=== PATIENT | female | born 1985 | race Caucasian/White ===

== ENCOUNTER 2016-09-16 13:18 | Emergency (ER) | payer OTHER ==
--- NOTE | 2016-09-16 14:49 | DIAGNOSTIC IMAGING REPORT ---
PROCEDURE: XR SHOULDER 2 OR MORE VW-RIGHT INDICATION: TRAUMA/INJURY TECHNIQUE: Three views. COMPARISON: None. FINDINGS: Osseous structures and joint spaces are normal. IMPRESSION: 1. Normal right shoulder.
--- NOTE | 2016-09-16 15:04 | ED CLINICAL REPORT ---
Clinical Report - Physicians/Mid Levels [facility] [address] [place] [address] 09/16/2016 13:18 Patient: EUGENIE FARRELL Time Seen: 1340; upon arrival, initial patient contact, initial documentation, patient care assumed. Arrived- By private vehicle. Historian- patient. HISTORY OF PRESENT ILLNESS Chief Complaint: Injury to right shoulder. The injury happened just prior to arrival. Twisting injury. Occurred at home. ( pulling weeds and blackberries, and hurt shoulder and heard a rip). Patient is experiencing severe pain. Patient denies injury to the head or neck. No other injury. ( states she has no pain meds and took advil, states she took her last pain pill about x2 weeks ago). REVIEW OF SYSTEMS No swelling, numbness, weakness or skin laceration. All systems otherwise negative, except as recorded above. PAST HISTORY The patient's dominant hand is the right. SOCIAL HISTORY Light tobacco smoker. Occasional alcohol use. History of heavy drug use: marijuana. Recently used drugs yesterday. No recent travel. Is a local resident. FAMILY HISTORY No significant family medical history. ADDITIONAL NOTES The nursing notes have been reviewed with agreement regarding the chief complaint, HPI, ROS, PMH and patient medications and allergies. PHYSICAL EXAM Vital Signs: 09/16/2016 13:33 BP: 115/75. HR: 82. RR: 20. O2 saturation: 100%. Temp: 98 F. Pain level now: 9/10. Have been reviewed as normal and appear to be correct. Appearance: Alert. Oriented X3. No acute distress. Head: Head atraumatic. Eyes: Pupils equal, round and reactive to light. Eyes normal inspection. Respiratory: No respiratory distress. Skin: Skin intact. Skin warm and dry. Normal skin color. Normal skin turgor. Extremities: Abnormal external inspection. Extremity tenderness. Right scapula area: severe tenderness. Limited ROM in the right arm secondary to pain (diminished abduction, flexion and external and internal rotation). No erythema, swelling, laceration, abrasion or ecchymosis. No puncture wound, foreign body or deformity. Shoulder injury present. Shoulder otherwise negative. Extremities otherwise negative. Neuro, Vascular and Tendons: Sensation intact. Motor intact. Vascular status intact. Tendon function intact. Tendon visualized, uninjured. Neuro: Oriented X 3. No motor deficit. No sensory deficit. Note: isolated issue to shoulder. LABS, X-RAYS, AND EKG X-Rays: Right shoulder negative. Rt Shoulder X-ray: (IMPRESSION: 1. Normal right shoulder. Electronically Final signed by:Obi Garcia MD 09/16/2016 2:53:02 PM). The X-rays were interpreted by the radiologist and contemporaneously by me. PROGRESS AND PROCEDURES Course of Care: 13:53 09/16/16. pt has yissel for frequent narcs, last rx 08/21 #90 hydrocodone 7.5mg, consistently getting rx approx every 2 weeks, see report for full details. Patient counseled in person regarding the patient's stable condition, test results and diagnosis. 14:52. Differential Diagnosis: I considered fracture, stress fracture, arthritis, sprain, hyperextension, dislocation, rotator cuff tear, acromioclavicular separation, soft tissue injury, soft tissue hematoma and tendonitis as a possible cause of upper extremity pain in this patient. This is a partial list of diagnoses considered. (substance abuse). Above considerations are based on history, physical exam and X-Ray data. Differential diagnosis was discussed with patient. Disposition: Discharged home in good and unchanged condition (15:04). Condition: good and stable. CLINICAL IMPRESSION Muscle strain of the right rotator cuff at the shoulder. INSTRUCTIONS Warnings: GENERAL WARNINGS: Return or contact your physician immediately if your condition worsens or changes unexpectedly, if not improving as expected, or if other problems arise. Specifically return if problem worsens. Prescription Medications: Naproxen 500 mg tablets: take 1 orally every 12 hours as needed for pain. Dispense twenty (20). No refills. Follow-up: Follow up with your doctor in about one week as needed. Call for an appointment. Summary of care provided to patient. Understanding of the discharge instructions verbalized by patient. (Electronically signed by Aruna Hanks A.R.N.P. 09/16/2016 16:20)
--- NOTE | 2016-09-16 15:05 | ED NURSING NOTES ---
Clinical Report - Nurses [facility] [address] [place] [address] 09/16/2016 13:18 [id number] Triage time 13:37. Acuity: LEVEL 3. Chief Complaint: INJURY TO RIGHT SHOULDER. INJURY TO THE RIGHT SCAPULA AREA and RIGHT SHOULDER. Alert. No acute distress. SEPSIS SCREEN: Sepsis Screen: negative. Negative (no infection suspected/documented). DION COMA SCORE: [place] Coma Scale: 15- eyes open spontaneously (4); best verbal response- oriented x 4 (5); best motor response- obeys commands (6). --13:43 Olamide Park R.N. 13:33 09/16/16. BP: 115/75. HR: 82. RR: 20. O2 saturation: 100% on room air. Temp: 98 F. Pain level now: 9/10. --13:43 Olamide Park R.N. 13:33 09/16/16. BP: 115/75. HR: 82. RR: 20. O2 saturation: 100% on room air. Temp: 98 F. Pain level now: 9/10. --13:43 Olamide Park R.N. Weight: 57.4 kg measured. Height/Length: 70 inches Per Patient. BMI: 18.2. --13:38 Olamide Park R.N. Medications None. --13:41 Olamide Park R.N. Allergies PCN. --13:41 Olamide Park R.N. Medication/allergy information source: the patient. --13:43 Olamide Park R.N. History Arrived by private vehicle. Historian: patient. Accompanied by family. No primary care physician. ( DROPPED OFF). This occurred just prior to arrival. Mechanism of injury: she sustained a twisting injury (Pulling weeks and blackberries., rt arm got caught and heard a rip.). Did not occur at home. Treatment ASSESSMENT MANAGER: None. PAST MEDICAL HX: Tetanus status: up-to-date. Last normal menstrual period now. SOCIAL HX: Light tobacco smoker (cigarette)- less than 1/2 a pack per day. Occasional alcohol use. History of drug use: marijuana. Recently used drugs yesterday. FALL RISK ASSESSMENT: Fall risk assessment completed. No fall risk identified. NUTRITIONAL RISK ASSESSMENT: The nutritional risk assessment revealed no deficiencies. FUNCTIONAL ASSESSMENT: Functional assessment: no impairments noted. LEARNING NEEDS ASSESSMENT: The learning needs assessment revealed no barriers. SKIN INTEGRITY ASSESSMENT: Skin integrity risk assessment completed. No skin integrity risk identified. --13:43 Olamide Park R.N. PROBLEMS: Shoulder injury . Corneal Abrasion. Sprain. Headache. Migraine Headache. --13:42 Olamide Park R.N. ADDITIONAL SURGERIES: Knee Surgery. --13:42 Olamide Park R.N. Interventions ID band on patient. To room. --13:43 Olamide Park R.N. PHYSICAL ASSESSMENT Ambulatory to room. Patient gowned. GENERAL / NEURO / PSYCH: Oriented X 4. Appears anxious. EXTREMITIES: Right scapula area. Limited ROM present. Right shoulder. SKIN: Skin is warm and dry. She has an abrasion on the chest, right forearm and left forearm. --13:44 Olamide Park R.N. NURSING PROGRESS NOTES Extremity elevated. Patient gowned. Two patient identifiers checked. Call light placed in reach. Side rails up x 1. Bed placed in lowest position. Brakes of bed on. --13:45 Olamide Park R.N. DISPOSITION / DISCHARGE 14:59 09/16/16. BP: 117/81 taken on the left arm, while sitting. HR: 75. RR: 18. O2 saturation: 100%. Temp: deferred. Pain level now: 01/26. 13:33 09/16/16. BP: 115/75. HR: 82. RR: 20. O2 saturation: 100% on room air. Temp: 98 F. Pain level now: 03/29. --15:00 Olamide Park R.N. Condition at departure: unchanged. No learning barriers present. Reviewed medication(s) side effects, precautions, dosing and course information. Prescription(s) given to the patient. Patient verbalized understanding. Written instructions provided in Cuban. The patient was discharged home and accompanied by field services director. She left the Emergency Department ambulatory and via private vehicle. Cop driving. Medication list reviewed and validated. --15:31 Olamide Park R.N. Locked/Released at 09/16/2016 15:31 by Olamide Park R.N.
--- NOTE | 2016-09-16 15:05 | ED NURSING NOTES ---
Clinical Report - Nurses [facility] [address] [place] [address] 09/16/2016 13:18 [id number] Triage time 13:37. Acuity: LEVEL 3. Chief Complaint: INJURY TO RIGHT SHOULDER. INJURY TO THE RIGHT SCAPULA AREA and RIGHT SHOULDER. Alert. No acute distress. SEPSIS SCREEN: Sepsis Screen: negative. Negative (no infection suspected/documented). DION COMA SCORE: [place] Coma Scale: 15- eyes open spontaneously (4); best verbal response- oriented x 4 (5); best motor response- obeys commands (6). --13:43 Olamide Park R.N. 13:33 09/16/16. BP: 115/75. HR: 82. RR: 20. O2 saturation: 100% on room air. Temp: 98 F. Pain level now: 9/10. --13:43 Olamide Park R.N. 13:33 09/16/16. BP: 115/75. HR: 82. RR: 20. O2 saturation: 100% on room air. Temp: 98 F. Pain level now: 9/10. --13:43 Olamide Park R.N. Weight: 57.4 kg measured. Height/Length: 70 inches Per Patient. BMI: 18.2. --13:38 Olamide Park R.N. Medications None. --13:41 Olamide Park R.N. Allergies PCN. --13:41 Olamide Park R.N. Medication/allergy information source: the patient. --13:43 Olamide Park R.N. History Arrived by private vehicle. Historian: patient. Accompanied by family. No primary care physician. ( DROPPED OFF). This occurred just prior to arrival. Mechanism of injury: she sustained a twisting injury (Pulling weeks and blackberries., rt arm got caught and heard a rip.). Did not occur at home. Treatment BUSINESS DEVELOPMENT ENGINEER: None. PAST MEDICAL HX: Tetanus status: up-to-date. Last normal menstrual period now. SOCIAL HX: Light tobacco smoker (cigarette)- less than 1/2 a pack per day. Occasional alcohol use. History of drug use: marijuana. Recently used drugs yesterday. FALL RISK ASSESSMENT: Fall risk assessment completed. No fall risk identified. NUTRITIONAL RISK ASSESSMENT: The nutritional risk assessment revealed no deficiencies. FUNCTIONAL ASSESSMENT: Functional assessment: no impairments noted. LEARNING NEEDS ASSESSMENT: The learning needs assessment revealed no barriers. SKIN INTEGRITY ASSESSMENT: Skin integrity risk assessment completed. No skin integrity risk identified. --13:43 Olamide Park R.N. PROBLEMS: Shoulder injury . Corneal Abrasion. Sprain. Headache. Migraine Headache. --13:42 Olamide Park R.N. ADDITIONAL SURGERIES: Knee Surgery. --13:42 Olamide Park R.N. Interventions ID band on patient. To room. --13:43 Olamide Park R.N. PHYSICAL ASSESSMENT Ambulatory to room. Patient gowned. GENERAL / NEURO / PSYCH: Oriented X 4. Appears anxious. EXTREMITIES: Right scapula area. Limited ROM present. Right shoulder. SKIN: Skin is warm and dry. She has an abrasion on the chest, right forearm and left forearm. --13:44 Olamide Park R.N. NURSING PROGRESS NOTES Extremity elevated. Patient gowned. Two patient identifiers checked. Call light placed in reach. Side rails up x 1. Bed placed in lowest position. Brakes of bed on. --13:45 Olamide Park R.N. DISPOSITION / DISCHARGE 14:59 09/16/16. BP: 117/81 taken on the left arm, while sitting. HR: 75. RR: 18. O2 saturation: 100%. Temp: deferred. Pain level now: 01/26. 13:33 09/16/16. BP: 115/75. HR: 82. RR: 20. O2 saturation: 100% on room air. Temp: 98 F. Pain level now: 03/29. --15:00 Olamide Park R.N. Condition at departure: unchanged. No learning barriers present. Reviewed medication(s) side effects, precautions, dosing and course information. Prescription(s) given to the patient. Patient verbalized understanding. Written instructions provided in Chinese. The patient was discharged home and accompanied by statistical machine servicer. She left the Emergency Department ambulatory and via private vehicle. Industrial Chemist driving. Medication list reviewed and validated. --15:31 Olamide Park R.N. Locked/Released at 09/16/2016 15:31 by Olamide Park R.N.
--- NOTE | 2016-09-16 15:05 | ED ORDER SUMMARY ---
..... Patient: EUGENIE FARRELL OrderSheet [facility] VisitID: [id number] [address] [place] [address] 31y, F Registration Date/Time: 09/16/2016 ORDER SHEET Weight: 57.4 kg (measured) Allergies: PCN GENERAL ORDERS: Shoulder 2V or more Right Urgent (13:49 09/16/2016 David A.R.N.P.) ([facility] 13:50 Yaa) (15:31 Steph R.N.) MEDICATION ORDERS: IV FLUIDS: ORDER SHEET NOTES: [Electronically signed by Olamide Park R.N. (15:31 09/16/2016)] [Electronically signed by Aruna HanksR.N.PObinna (16:20 09/16/2016)] [Electronically locked/signed by Olamide Park R.N. (15:31 09/16/2016)]
--- NOTE | 2016-09-16 15:05 | ED ORDER SUMMARY ---
..... Patient: EUGENIE FARRELL OrderSheet [facility] VisitID: [id number] [address] [place] [address] 31y, F Registration Date/Time: 09/16/2016 ORDER SHEET Weight: 57.4 kg (measured) Allergies: PCN GENERAL ORDERS: Shoulder 2V or more Right Urgent (13:49 09/16/2016 David A.R.N.P.) ([facility] 13:50 Yaa) (15:31 Steph R.N.) MEDICATION ORDERS: IV FLUIDS: ORDER SHEET NOTES: [Electronically signed by Olamide Park R.N. (15:31 09/16/2016)] [Electronically signed by Aruna HanksR.N.PObinna (16:20 09/16/2016)] [Electronically locked/signed by Olamide Park R.N. (15:31 09/16/2016)]
--- NOTE | 2016-09-16 16:20 | ED DISCHARGE INSTRUCTIONS ---
Patient: EUGENIE FARRELL General Instructions [facility] VisitID: [id number] [place] [address] 31y, F Registration Date/Time: 09/16/2016 Muscle strain of the right rotator cuff at the shoulder. INSTRUCTIONS Warnings: GENERAL WARNINGS: Return or contact your physician immediately if your condition worsens or changes unexpectedly, if not improving as expected, or if other problems arise. Specifically return if problem worsens. Prescription Medications: Naproxen 500 mg tablets: take 1 orally every 12 hours as needed for pain. Dispense twenty (20). No refills. Follow-up: Follow up with your doctor in about one week as needed. Call for an appointment. Summary of care provided to patient. Understanding of the discharge instructions verbalized by patient. ADDITIONAL INFORMATION Muscle Strain,Extremity A MUSCLE STRAIN is a stretching and tearing of muscle fibers. This causes pain, especially with motion of that muscle. There may also be some swelling and bruising. Home Care: 1) Keep the injured area raised to reduce pain and swelling. This is especially important during the first 48 hours. 2) Make an ice pack (ice cubes in a plastic bag, wrapped in a towel) and apply for 20 minutes every 1-2 hours the first day. You should continue with ice packs 3-4 times a day for the second and third days. Unless otherwise instructed, on the fourth day you may begin hot soaks or hot packs (small towel soaked in hot water) 3-4 times a day while you gently exercise the involved area. 3) You may use acetaminophen (Tylenol) or ibuprofen (Motrin, Advil) to control pain, unless another medicine was prescribed. [ NOTE : If you have chronic liver or kidney disease or ever had a stomach ulcer or GI bleeding, talk with your doctor before using these medicines.] 4) For LEG STRAINS: If CRUTCHES have been recommended, do not bear full weight on the injured leg until you can do so without pain. You may return to sports when you are able to hop and run on the injured leg without pain. Follow Up with your doctor or this facility if you are not improving within the next five days. Get Prompt Medical Attention if any of the following occur: -- Fingers or toes become swollen, cold, blue, numb or tingly -- Pain or swelling increases Naproxen Sodium Oral tablet What is this medicine? NAPROXEN (na PROX en) is a non-steroidal anti-inflammatory drug (NSAID). It is used to reduce swelling and to treat pain. This medicine may be used for dental pain, headache, or painful monthly periods. It is also used for painful joint and muscular problems such as arthritis, tendinitis, bursitis, and gout. How should I use this medicine? Take this medicine by mouth with a glass of water. Follow the directions on the prescription label. Take it with food if your stomach gets upset. Try to not lie down for at least 10 minutes after you take it. Take your medicine at regular intervals. Do not take your medicine more often than directed. Long-term, continuous use may increase the risk of heart attack or stroke. A special MedGuide will be given to you by the pharmacist with each prescription and refill. Be sure to read this information carefully each time. Talk to your manager of broadcast content regarding the use of this medicine in children. Special care may be needed. What side effects may I notice from receiving this medicine? Side effects that you should report to your doctor or health manager care as soon as possible: black or bloody stools, blood in the urine or vomit blurred vision chest pain difficulty breathing or wheezing nausea or vomiting severe stomach pain skin rash, skin redness, blistering or peeling skin, hives, or itching slurred speech or weakness on one side of the body swelling of eyelids, throat, lips unexplained weight gain or swelling unusually weak or tired yellowing of eyes or skin Side effects that usually do not require medical attention (report to your doctor or health manager care if they continue or are bothersome): constipation headache heartburn What may interact with this medicine? alcohol aspirin cidofovir diuretics lithium methotrexate other drugs for inflammation like ketorolac or prednisone pemetrexed probenecid warfarin What if I miss a dose? If you miss a dose, take it as soon as you can. If it is almost time for your next dose, take only that dose. Do not take double or extra doses. Where should I keep my medicine? Keep out of the reach of children. Store at room temperature between 15 and 30 degrees C (59 and 86 degrees F). Keep container tightly closed. Throw away any unused medicine after the expiration date. What should I tell my health care provider before I take this medicine? They need to know if you have any of these conditions: asthma cigarette smoker drink more than 3 alcohol containing drinks a day heart disease or circulation problems such as heart failure or leg edema (fluid retention) high blood pressure kidney disease liver disease stomach bleeding or ulcers an unusual or allergic reaction to naproxen, aspirin, other NSAIDs, other medicines, foods, dyes, or preservatives or trying to get breast-feeding What should I watch for while using this medicine? Tell your doctor or health manager care if your pain does not get better. Talk to your doctor before taking another medicine for pain. Do not treat yourself. This medicine does not prevent heart attack or stroke. In fact, this medicine may increase the chance of a heart attack or stroke. The chance may increase with longer use of this medicine and in people who have heart disease. If you take aspirin to prevent heart attack or stroke, talk with your doctor or health manager care. Do not take other medicines that contain aspirin, ibuprofen, or naproxen with this medicine. Side effects such as stomach upset, nausea, or ulcers may be more likely to occur. Many medicines available without a prescription should not be taken with this medicine. This medicine can cause ulcers and bleeding in the stomach and intestines at any time during treatment. Do not smoke cigarettes or drink alcohol. These increase irritation to your stomach and can make it more susceptible to damage from this medicine. Ulcers and bleeding can happen without warning symptoms and can cause . You may get drowsy or dizzy. Do not drive, use machinery, or do anything that needs mental alertness until you know how this medicine affects you. Do not stand or sit up quickly, especially if you are an older patient. This reduces the risk of dizzy or fainting spells. This medicine can cause you to bleed more easily. Try to avoid damage to your teeth and gums when you brush or floss your teeth. You have been given the following additional information: Muscle Strain, Extremity Naproxen Sodium Oral tablet (Electronically signed by Aruna Hanks A.R.N.P. 09/16/2016 16:20)
--- NOTE | 2016-09-16 16:20 | ED MAR SUMMARY ---
..... Medication Administration Record [facility] [address] [place], [place] [id number] Patient: EUGENIE FARRELL Visit ID: [id number] 31y, F Weight: 57.4 kg Height/Length: 70 in BMI: 18.2 ALLERGIES: PCN
--- NOTE | 2016-09-16 16:20 | ED MAR SUMMARY ---
..... Medication Administration Record [facility] [address] [place], [place] [id number] Patient: EUGENIE FARRELL Visit ID: [id number] 31y, F Weight: 57.4 kg Height/Length: 70 in BMI: 18.2 ALLERGIES: PCN
--- NOTE | 2016-09-16 16:20 | ED DISCHARGE INSTRUCTIONS ---
Patient: EUGENIE FARRELL General Instructions [facility] VisitID: [id number] [place] [address] 31y, F Registration Date/Time: 09/16/2016 Muscle strain of the right rotator cuff at the shoulder. INSTRUCTIONS Warnings: GENERAL WARNINGS: Return or contact your physician immediately if your condition worsens or changes unexpectedly, if not improving as expected, or if other problems arise. Specifically return if problem worsens. Prescription Medications: Naproxen 500 mg tablets: take 1 orally every 12 hours as needed for pain. Dispense twenty (20). No refills. Follow-up: Follow up with your doctor in about one week as needed. Call for an appointment. Summary of care provided to patient. Understanding of the discharge instructions verbalized by patient. ADDITIONAL INFORMATION Muscle Strain,Extremity A MUSCLE STRAIN is a stretching and tearing of muscle fibers. This causes pain, especially with motion of that muscle. There may also be some swelling and bruising. Home Care: 1) Keep the injured area raised to reduce pain and swelling. This is especially important during the first 48 hours. 2) Make an ice pack (ice cubes in a plastic bag, wrapped in a towel) and apply for 20 minutes every 1-2 hours the first day. You should continue with ice packs 3-4 times a day for the second and third days. Unless otherwise instructed, on the fourth day you may begin hot soaks or hot packs (small towel soaked in hot water) 3-4 times a day while you gently exercise the involved area. 3) You may use acetaminophen (Tylenol) or ibuprofen (Motrin, Advil) to control pain, unless another medicine was prescribed. [ NOTE : If you have chronic liver or kidney disease or ever had a stomach ulcer or GI bleeding, talk with your doctor before using these medicines.] 4) For LEG STRAINS: If CRUTCHES have been recommended, do not bear full weight on the injured leg until you can do so without pain. You may return to sports when you are able to hop and run on the injured leg without pain. Follow Up with your doctor or this facility if you are not improving within the next five days. Get Prompt Medical Attention if any of the following occur: -- Fingers or toes become swollen, cold, blue, numb or tingly -- Pain or swelling increases Naproxen Sodium Oral tablet What is this medicine? NAPROXEN (na PROX en) is a non-steroidal anti-inflammatory drug (NSAID). It is used to reduce swelling and to treat pain. This medicine may be used for dental pain, headache, or painful monthly periods. It is also used for painful joint and muscular problems such as arthritis, tendinitis, bursitis, and gout. How should I use this medicine? Take this medicine by mouth with a glass of water. Follow the directions on the prescription label. Take it with food if your stomach gets upset. Try to not lie down for at least 10 minutes after you take it. Take your medicine at regular intervals. Do not take your medicine more often than directed. Long-term, continuous use may increase the risk of heart attack or stroke. A special MedGuide will be given to you by the pharmacist with each prescription and refill. Be sure to read this information carefully each time. Talk to your branch administrator regarding the use of this medicine in children. Special care may be needed. What side effects may I notice from receiving this medicine? Side effects that you should report to your doctor or health childcare aide as soon as possible: black or bloody stools, blood in the urine or vomit blurred vision chest pain difficulty breathing or wheezing nausea or vomiting severe stomach pain skin rash, skin redness, blistering or peeling skin, hives, or itching slurred speech or weakness on one side of the body swelling of eyelids, throat, lips unexplained weight gain or swelling unusually weak or tired yellowing of eyes or skin Side effects that usually do not require medical attention (report to your doctor or health childcare aide if they continue or are bothersome): constipation headache heartburn What may interact with this medicine? alcohol aspirin cidofovir diuretics lithium methotrexate other drugs for inflammation like ketorolac or prednisone pemetrexed probenecid warfarin What if I miss a dose? If you miss a dose, take it as soon as you can. If it is almost time for your next dose, take only that dose. Do not take double or extra doses. Where should I keep my medicine? Keep out of the reach of children. Store at room temperature between 15 and 30 degrees C (59 and 86 degrees F). Keep container tightly closed. Throw away any unused medicine after the expiration date. What should I tell my health care provider before I take this medicine? They need to know if you have any of these conditions: asthma cigarette smoker drink more than 3 alcohol containing drinks a day heart disease or circulation problems such as heart failure or leg edema (fluid retention) high blood pressure kidney disease liver disease stomach bleeding or ulcers an unusual or allergic reaction to naproxen, aspirin, other NSAIDs, other medicines, foods, dyes, or preservatives or trying to get breast-feeding What should I watch for while using this medicine? Tell your doctor or health childcare aide if your pain does not get better. Talk to your doctor before taking another medicine for pain. Do not treat yourself. This medicine does not prevent heart attack or stroke. In fact, this medicine may increase the chance of a heart attack or stroke. The chance may increase with longer use of this medicine and in people who have heart disease. If you take aspirin to prevent heart attack or stroke, talk with your doctor or health childcare aide. Do not take other medicines that contain aspirin, ibuprofen, or naproxen with this medicine. Side effects such as stomach upset, nausea, or ulcers may be more likely to occur. Many medicines available without a prescription should not be taken with this medicine. This medicine can cause ulcers and bleeding in the stomach and intestines at any time during treatment. Do not smoke cigarettes or drink alcohol. These increase irritation to your stomach and can make it more susceptible to damage from this medicine. Ulcers and bleeding can happen without warning symptoms and can cause . You may get drowsy or dizzy. Do not drive, use machinery, or do anything that needs mental alertness until you know how this medicine affects you. Do not stand or sit up quickly, especially if you are an older patient. This reduces the risk of dizzy or fainting spells. This medicine can cause you to bleed more easily. Try to avoid damage to your teeth and gums when you brush or floss your teeth. You have been given the following additional information: Muscle Strain, Extremity Naproxen Sodium Oral tablet (Electronically signed by Aruna Hanks A.R.N.P. 09/16/2016 16:20)
--- NOTE | 2016-09-16 16:21 | ED MED RECONCILIATION SUMMARY ---
Patient: EUGENIE FARRELL Medication Reconciliation Report [facility] VisitID: [id number] [address] [place] [address] 31y, F Registration Date/Time: 09/16/2016 Weight: 57.4 kg Height/Length: 70 in. BMI: 18.2 ALLERGIES: PCN The patient's Home Medications are listed below: NONE. The source(s) of the original Home Medication information: patient The following Medications were given to the patient in the Emergency Department: None. The following Medications were prescribed to the patient: Naproxen 500 mg tablets: take 1 orally every 12 hours as needed for pain. Dispense twenty (20). No refills. -- Aruna Hanks A.R.N.P.
--- NOTE | 2016-09-16 16:21 | ED MED RECONCILIATION SUMMARY ---
Patient: EUGENIE FARRELL Medication Reconciliation Report [facility] VisitID: [id number] [address] [place] [address] 31y, F Registration Date/Time: 09/16/2016 Weight: 57.4 kg Height/Length: 70 in. BMI: 18.2 ALLERGIES: PCN The patient's Home Medications are listed below: NONE. The source(s) of the original Home Medication information: patient The following Medications were given to the patient in the Emergency Department: None. The following Medications were prescribed to the patient: Naproxen 500 mg tablets: take 1 orally every 12 hours as needed for pain. Dispense twenty (20). No refills. -- Aruna Hanks A.R.N.P.
== END 2016-09-16 15:30 | disposition home or self-care (01) ==
LOC: ED SRH 13:18
DX: S46.011A Strain of muscle(s) and tendon(s) of the rotator cuff of right shoulder, initial encounter (principal); X50.0XXA Overexertion from strenuous movement or load, initial encounter; Y93.H2 Activity, gardening and landscaping; Y92.009 Unspecified place in unspecified non-institutional (private) residence as the place of occurrence of the external cause; Y99.9 Unspecified external cause status; F17.210 Nicotine dependence, cigarettes, uncomplicated; Z88.0 Allergy status to penicillin

== ENCOUNTER 2016-11-26 13:10 | Outpatient (CLI) | payer OTHER ==
--- NOTE | 2016-11-26 14:46 | DIAGNOSTIC IMAGING REPORT ---
PROCEDURE: US COMPLETE PELVIC W/TRANSVAG INDICATION: PELVIC PAIN TECHNIQUE: Transabdominal and endovaginal mohr scale and color Doppler sonographic images of the female pelvis were obtained. COMPARISON: None. FINDINGS: TRANSABDOMINAL SCANS: The uterus is of normal size 6.7 x 3.1 x 4.9 cm Kidneys are normal. TRANSVAGINAL SCANS: The uterus is anteverted. Myometrium is normal. The endometrium measures 4.7 mm. Right ovary is normal measuring 2.0 x 1.8 x 2.2 cm The left ovary is normal measuring 2.0 x 1.6 x 1.5 cm. There is a 16 mm follicle on the left ovary. There is an IUD in correct position. IMPRESSION: 1. Normal uterus and ovaries. IUD in correct position. 2. Results were called to Jasmine at 02:45 p.m.
== END 2016-11-26 23:00 ==
LOC: US SRH 13:10
DX: R10.2 Pelvic and perineal pain (principal); Z97.5 Presence of (intrauterine) contraceptive device

== ENCOUNTER 2016-12-11 09:50 | Emergency (ER) | payer OTHER ==
--- NOTE | 2016-12-11 10:42 | DIAGNOSTIC IMAGING REPORT ---
PROCEDURE: XR CHEST 2 VIEW INDICATION: COUGH, RIB PAIN TECHNIQUE: PA and lateral views. COMPARISON: None. FINDINGS: Lungs are clear. Heart and mediastinum are normal. Thorax is normal. IMPRESSION: 1. Negative chest.
--- NOTE | 2016-12-11 12:12 | ED NURSING NOTES ---
Clinical Report - Nurses [facility] [address] [place] [address] 12/11/2016 9:51 [id number] Triage time 09:54. Acuity: LEVEL 3. Chief Complaint: CHEST PAIN and DIFFICULTY BREATHING. Alert. MECHELLE COMA SCORE: Mechelle Coma Scale: 15- eyes open spontaneously (4); best verbal response- oriented x 4 (5); best motor response- obeys commands (6). --10:00 Eliane Blakely R.N. 09:53 12/11/16. BP: 136/89. HR: 77. RR: 15. O2 saturation: 96%. Temp: 98.4 F (temporal). Pain level now: 1010. --10:00 Eliane Blakely R.N. Weight: 54.4 kg stated. Height/Length: 70 inches Per Patient. BMI: 17.2. --09:58 Eliane Blakely R.N. Medications Hydrocodone-Acetaminophen Oral. --09:56 Eliane Blakely R.N. Methocarbamol Oral. --09:56 Eliane Blakely R.N. Allergies Penicillins. --09:56 Eliane Blakely R.N. History Arrived by private vehicle. Historian: patient. Accompanied by family. Primary physician ([facility]). This started last night. Describes the quality as (constant). Relates location as in the central chest area and in the back. Notes pain level as 10/10 on arrival. Provoking / relieving factors: worsened by movement, cough and deep breaths. Relieved by nothing. The patient has had difficulty breathing. No sweating episodes, nausea or vomiting. PAST MEDICAL HX: Last normal menstrual period- October 2016. SOCIAL HX: Heavy tobacco smoker- 1 pack per day. Occasional alcohol use. History of drug use: marijuana. FALL RISK ASSESSMENT: Fall risk assessment completed. No fall risk identified. FUNCTIONAL ASSESSMENT: Functional assessment: no impairments noted. LEARNING NEEDS ASSESSMENT: The learning needs assessment revealed no barriers. --10:00 Eliane Blakely R.N. PROBLEMS: Muscle Strain, Upper Extremity. Shoulder injury . Corneal Abrasion. Sprain. Headache. Migraine Headache. --09:57 Eliane Blakely R.N. ADDITIONAL SURGERIES: Knee Surgery. --09:57 Eliane Blakely R.N. Assessment GENERAL / NEURO / PSYCH: The patient is awake and alert, is oriented and cooperative and appears uncomfortable. RESPIRATORY: Respirations not labored. SKIN: Skin is warm and dry. --10:00 Eliane Blakely R.N. Interventions ID and allergy band on patient. To treatment room. --10:00 Eliane Blakely R.N. PHYSICAL ASSESSMENT 10:12/11/16. To room via wheelchair. Patient gowned. GENERAL / NEURO / PSYCH: The patient is awake and alert, is oriented and cooperative and appears uncomfortable. ( crying). RESPIRATORY: Respirations not labored. Cough. CVS: Cardiac rhythm: sinus rhythm. SKIN: Skin is warm and dry. --10: Eliane Blakely R.N. NURSING PROGRESS NOTES 10:12/11/16. retail cosmetics sales counter manager, pulse oximeter and NIBP monitor placed on patient. Patient gowned. Head of bed elevated. Call light placed in reach. Side rails up x 1. Bed placed in lowest position. Brakes of bed on. --10: Eliane Blakely R.N. 10:12/11/2016 Site #1 started via IV in the right antecubital space with an 20g angiocath, with aseptic technique and good blood return; one attempt. Blood drawn: rainbow set. Labeled in the presence of the patient and sent to the lab. Saline lock flushed with 10 mL saline (by Randy RUDD). --10: Eliane Blakely R.N. 10:12/11/16. EKG time: (1009). EKG was performed by a tech and shown to the ED physician. --10: Solo Champagne 10:18 12/11/2016 Morphine IVP 4 mg given over 2 minute(s) via site #1. Allergies verified, confirmed 5 rights and sedative warning given to the patient and patient's yarn tester. IV patency established. IV site checked: no pain, redness, or swelling. IV flushed thoroughly pre- and post-medication administration. --10:18 Randy Javed R.N. 10:18 12/11/2016 Started bag #1 1000 mL IV Fluids IV NS (Saline); at 1000 mL/hr over 1 hour(s) via site #1 via dial-a-flow. Allergies verified and confirmed 5 rights. IV patency established. IV site checked: no pain, redness, or swelling. IV flushed thoroughly pre- and post-medication administration. --10:18 Randy Javed R.N. 10:40 12/11/2016 Duoneb (Ipratropium-Albuterol) Neb TX Nebulizer 1 unit dose given. Given by the nurse. Allergies verified and confirmed 5 rights. --10:43 Randy Javed R.N. 11:36 12/11/2016 Toradol IVP 30 mg given over 2 minute(s) via site #1. Allergies verified and confirmed 5 rights. IV patency established. IV site checked: no pain, redness, or swelling. IV flushed thoroughly pre- and post-medication administration. --11:36 Randy Javed R.N. 12:01 12/11/2016 IV Fluids IV NS Discontinued: bag #1 infused upon discharge. Total amount infused: 1000 mL. IV patency established. IV site checked: no pain, redness, or swelling. IV flushed thoroughly. --12:26 Randy Javed R.N. 11:00 12/11/16. BP: 115/78. HR: 88. RR: 18. O2 saturation: 100%. --12:27 Randy Javed R.N. DISPOSITION / DISCHARGE Departure time: 12:Dec 11 2016. Condition at departure: improved. No learning barriers present. Discharge instructions provided and reviewed with the patient. Reviewed warnings. Reviewed medication(s). Treatments reviewed. Reviewed referrals. Patient verbalized understanding. Written instructions provided in Wolof. The patient was discharged home and accompanied by parent. She left the Emergency Department ambulatory and via private vehicle. Parent driving. --12:24 Randy Javed R.N. 12:24 12/11/16. BP: 104/70. HR: 88. RR: 18. O2 saturation: 97%. Temp: 98.4 F. Pain level now 09/26. --12:24 Randy Javed R.N. 12:14 12/11/2016 Site #1 removed upon discharge. Catheter intact. Pressure dressing applied. --12:24 Randy Javed R.N. Locked/Released at 12/11/2016 16:12 by Randy Javed R.N.
--- NOTE | 2016-12-11 12:12 | ED CLINICAL REPORT ---
Clinical Report - Physicians/Mid Levels [facility] [address] [place] [address] 12/11/2016 9:51 Patient: EUGENIE FARRELL Time Seen: 1009. Arrived- By private vehicle. Historian- patient. HISTORY OF PRESENT ILLNESS Chief Complaint: COUGH and SORE THROAT. This started a few days ago and is still present and worsening. It was abrupt in onset and has been constant but is not gone now. The illness is described as moderate. The patient has had a cough, difficulty breathing, a sore throat and muscle aches. She complains of moderate, sharp, pleuritic central chest pain, currently moderate, associated with shortness of breath. Additional history - No known contact with a sick individual. No recent travel. (reports no hx of dvt/pe, leg swelling, recent trauma/surgery, hemoptysis, hx of CA, hormone therapy.). Similar symptoms previously: None. Recent medical care: Not recently seen/assessed. REVIEW OF SYSTEMS All systems otherwise negative, except as recorded above. PAST HISTORY See nurses notes. Medications: Methocarbamol Oral. Hydrocodone-Acetaminophen Oral. Allergies: Penicillins. SOCIAL HISTORY Smoker- current status unknown. Occasional alcohol use. History of occasional drug use: marijuana. No recent travel. Is a local resident. FAMILY HISTORY (no family hx of early cardiac disease). ADDITIONAL NOTES The nursing notes have been reviewed. PHYSICAL EXAM Vital Signs: 12/11/2016 09:53 BP: 136/89. HR: 77. RR: 15. O2 saturation: 96%. Temp: 98.4 F. Pain level now: 10/10. Oxygen saturation normal. Appearance: Alert. No acute distress. Eyes: Pupils equal, round and reactive to light. Eyes normal inspection. ENT: Ears normal. Nose normal. Uvula midline. (mild erythema to the posterior pharynx. no massses. no exudates.). Neck: Normal inspection. Neck supple. CVS: Normal heart rate and rhythm. Heart sounds normal. Pulses normal. Respiratory: No respiratory distress. Breath sounds normal. Abdomen: Soft and nontender. No organomegaly. Skin: Skin warm and dry. Normal skin color. No rash. Normal skin turgor. Extremities: Extremities exhibit normal ROM. No lower extremity edema. Neuro: Oriented X 3. No motor deficit. No sensory deficit. LABS, X-RAYS, AND EKG EKG: No acute ischemia. Normal EKG. Normal sinus rhythm. Rate: 73. Normal P waves. Normal RHIANNON. Normal QRS complex. Normal axis. Normal ST and T waves, QT and QTc. The study has been interpreted contemporaneously. The study has been independently viewed by me. The EKG appears to be a good tracing. Chest X-ray: (PROCEDURE: XR CHEST 2 VIEW INDICATION: COUGH, RIB PAIN TECHNIQUE: PA and lateral views. COMPARISON: None. FINDINGS: Lungs are clear. Heart and mediastinum are normal. Thorax is normal. IMPRESSION: 1. Negative chest.). The X-rays were independently viewed by me and interpreted by the radiologist. The X-rays were discussed with the radiologist (via pacs). Laboratory Tests: Urine: (DONNY: 12/11/2016 11:00) ( [facility] 12/11/2016 11:12) Final results Test Result Flag Units (Reference) URINE NEGATIVE CBC w Diff: (DONNY: 12/11/2016 10:05) ( [facility] 12/11/2016 10:26) Final results Test Result Flag Units (Reference) WHITE BLOOD COUNT 9.1 K/uL (4.5-11.5) RED BLOOD COUNT 4.13 M/uL (4.00-5.20) HEMOGLOBIN 13.8 gm/dL (12.0-16.0) HEMATOCRIT 40.7 % (36.0-46.0) MEAN CELL VOLUME 99 fL (80-100) MEAN CORPUSCULAR HGB 34 pg (26-34) MEAN CORPUSCULAR HGB CONC 34 g/dL (31-37) RED CELL DISTRIBUTION WIDTH 12.6 % (11.6-14.8) PLATELET COUNT 206 K/uL (150-400) NEUTROPHIL % 47.6 L % (50-75) LYMPH % 44.7 H % (25-40) MONO % 4.5 % (3-14) EOSINOPHIL % 2.5 % (0-4) BASOPHIL % 0.7 % (0-2) CMP: (DONNY: 12/11/2016 10:05) ( [facility] 12/11/2016 10:38) Final results Test Result Flag Units (Reference) GLUCOSE 127 H mg/dL (70-110) BUN 12 mg/dL (7-18) CREATININE 0.7 mg/dL (0.6-1.3) Estimated GFR >60 mL/min Estimated GFR- >60 mL/min Note: Persistent reduction over 3 months in eGFR<60 mL/min/1.73 m2 defines CKD. Patients with eGFR values>=60 mL/min/1.73 m2 may also have CKD if evidence ofpersistent proteinuria. Additional information may be foundat www.kidney.org. SODIUM 140 mmol/L (136-145) POTASSIUM 4.2 mmol/L (3.5-5.1) CHLORIDE 104 mmol/L (98-107) CARBON DIOXIDE 27 mmol/L (21-32) CALCIUM 8.8 mg/dL (8.5-10.1) TOTAL PROTEIN 7.2 g/dL (6.4-8.2) ALBUMIN 3.7 g/dL (3.3-5.0) BILIRUBIN, TOTAL 0.8 mg/dL (0.0-1.0) ALKALINE PHOSPHATASE 105 U/L (46-116) AST (SGOT) 17 U/L (15-37) ALT (SGPT) 25 U/L (12-78) LIPASE 127 U/L (73-393) Culture, Strep Screen: (DONNY: 12/11/2016 10:10) ( [facility] 12/13/2016 12:14) Final results Test Result Flag Units (Reference) RAPID STREP SCREEN - THROAT DATE: 12/11/16 NEGATIVE SCREEN: RAPID STREP SCREEN NEGATIVE; CONFIRMATION TO FOLLOW . DATE: 12/13/16 NO BETA STREP ISOLATED: NO BETA STREP ISOLATED . PROGRESS AND PROCEDURES Course of Care: the patient is a pleasant 31-year-old female presenting for evaluation of what appears to be pleuritic chest pain and symptoms of upper respiratory tract infection. Patient is also having chest pain and shortness of breath. Patient is currently PE RC negative. Do not feel further workup/evaluation for pulmonary embolism is Warranted. Patient also with a low risk on well's criteria. We'll evaluate for any acute electrolyte abnormalities with or metabolic disturbances from the patient'sillness as well as evaluation of chest x-ray and EKG for any conduction abnormalities. EKG without any acute findings. Has been reviewed for pericarditis. No signs of pericarditis on my evaluation. Patient is also noted to have no tachycardia. Symptoms are also not positional. The patient's workup was noted for the findings above. No acute abnormalities noted requiring further treatment here in the emergency department or admission to the hospital. Rapid strep is noted to be negative. Her etiology favored. Patient with notedsignificant improvement withinterventions provided here in the emergency department. Patient does not have any wheezing on examination however did reports significant improvement after breathing treatment was provided. Because of the patient's symptomatic improvement with breathing treatment, do not feel symptoms at this time are due to any more sinister etiologies. I discussion with the patient in regards to her workup here in the emergency department according diagnosis, home care, follow-up, and return precautions. All questions have been answered. The patient expressed understanding of these instructions and was agreeable to them. Do not feel chest pain is cardiac in nature. Feel the patient's discomfort is pleuritic. Disposition: Discharged. Condition: good. CLINICAL IMPRESSION Chest wall pain .12 lead EKG performed. (acute bilateral lower). Acute bronchitis. Acute bronchospasm Essential hypertension. INSTRUCTIONS Warnings: SEDATIVE MEDICATION: You were given sedative medication during your visit. Do not drive or operate dangerous machinery. CONTROLLED SUBSTANCE WARNINGS. GENERAL WARNINGS: Return or contact your physician immediately if your condition worsens or changes unexpectedly, if not improving as expected, or if other problems arise. Specifically return if pain, vomiting, bleeding, breathing difficulty or fever. Your Current Medications: CONTINUE TAKING THE FOLLOWING MEDICATIONS: Hydrocodone-Acetaminophen Oral. Methocarbamol Oral. Prescription Medications: Zithromax Z-Valentino: Take according to package instructions. No refills. Substitution is permissible. Percocet 5 mg/325 mg: take 1-2 tablets orally every 6 hours as needed for pain. Dispense twelve (12). No refill. Substitution is permissible. Follow-up: Return to the emergency department as needed. Follow up with your doctor in three days. Reason for referral: recheck today's concerns. Summary of care provided to patient via paper. Screening today revealed the patient's blood pressure to be in the hypertensive range. The patient should follow up with a primary care provider for blood pressure management. Understanding of the discharge instructions verbalized by patient. Follow-up with: [facility], , , [address], , [place], [id number] Follow up. Reason for referral: contact for follow up if you do not have a PCP. Summary of care provided to patient via paper. (Electronically signed by Reza Greenwood Dr. 12/15/2016 5:24)
--- NOTE | 2016-12-11 12:12 | ED ORDER SUMMARY ---
..... Patient: EUGENIE FARRELL OrderSheet [facility] VisitID: [id number] [place] [address] 31y, F Registration Date/Time: 12/11/2016 ORDER SHEET Weight: 54.4 kg (stated) Allergies: Penicillins GENERAL ORDERS: Chest 2V Urgent (10:12 12/11/2016 Anna Solomon) (Ack 10:14 Yaa) (10:17 LWhalen R.N.) CBC w Diff Urgent (10:13 12/11/2016 Anna Solomon) (Ack 10:14 Yaa) (10:17 LWhalen R.N.) CMP Urgent (10:13 12/11/2016 Anna Solomon) (Ack 10:14 Yaa) (10:17 LWhalcomfort R.N.) Lipase Urgent (10:13 12/11/2016 Anna Solomon) (Ack 10:14 Yaa) (10:17 LWhalen R.N.) Urine Urgent (10:13 12/11/2016 Anna Solomon) (Ack 10:14 Yaa) (11:23 Barby R.N.) Pulse oximeter (10:13 12/11/2016 Anna Solomon) (10:17 LWhalen R.N.) Culture, Strep Screen Urgent (10:13 12/11/2016 Anna Solomon) (Ack 10:14 Yaa) (10:17 LWhalen R.N.) Sling - arm (peds, left arm) (10:36 12/11/2016 Anna Solomon) (Cancelled: error10:42 Anna Solomon) MEDICATION ORDERS: DuoNeb Neb Tx 1 unit dose (NOW) (10:13 12/11/2016 Anna Solomon) (Ack 10:29 LWhalen R.N.) (Cancelled: error10:36 Anna Solomon) DuoNeb Neb Tx 1 unit dose (back log for 10:40am) (10:43 12/11/2016 Anna Solomon) (10:43 LWhalen R.N.) IV FLUIDS: IV NS : initial bolus 1000 mL (1000 mL/hr), then none - for X1 (NOW) (10:12 12/11/2016 Anna Solomon) (10:18 LWmartha R.N.) Morphine IV 4 mg (HIGH ALERT MEDICATION, NOW) (10:12 12/11/2016 Anna Solomon) (10:18 LWmartha R.N.) Toradol IV 30 mg (NOW) (11:28 12/11/2016 Anna Solomon) (11:36 LWhalcomfort R.N.) ORDER SHEET NOTES: [Electronically signed by Randy Javed R.N. (16:12 12/11/2016)] [Electronically signed by Reza Greenwood Dr. (05:24 12/15/2016)] [Electronically locked/signed by Randy Javed R.N. (16:12 12/11/2016)]
--- NOTE | 2016-12-11 12:12 | ED ORDER SUMMARY ---
..... Patient: EUGENIE FARRELL OrderSheet [facility] VisitID: [id number] [place] [address] 31y, F Registration Date/Time: 12/11/2016 ORDER SHEET Weight: 54.4 kg (stated) Allergies: Penicillins GENERAL ORDERS: Chest 2V Urgent (10:12 12/11/2016 Anna Solomon) (Ack 10:14 Yaa) (10:17 LWhalen R.N.) CBC w Diff Urgent (10:13 12/11/2016 Anna Solomon) (Ack 10:14 Yaa) (10:17 LWhalen R.N.) CMP Urgent (10:13 12/11/2016 Anna Solomon) (Ack 10:14 Yaa) (10:17 LWhalcomfort R.N.) Lipase Urgent (10:13 12/11/2016 Anna Solomon) (Ack 10:14 Yaa) (10:17 LWhalen R.N.) Urine Urgent (10:13 12/11/2016 Anna Solomon) (Ack 10:14 Yaa) (11:23 Barby R.N.) Pulse oximeter (10:13 12/11/2016 Anna Solomon) (10:17 LWhalen R.N.) Culture, Strep Screen Urgent (10:13 12/11/2016 Anna Solomon) (Ack 10:14 Yaa) (10:17 LWhalen R.N.) Sling - arm (peds, left arm) (10:36 12/11/2016 Anna Solomon) (Cancelled: error10:42 Anna Solomon) MEDICATION ORDERS: DuoNeb Neb Tx 1 unit dose (NOW) (10:13 12/11/2016 Anna Solomon) (Ack 10:29 LWhalen R.N.) (Cancelled: error10:36 Anna Solomon) DuoNeb Neb Tx 1 unit dose (back log for 10:40am) (10:43 12/11/2016 Anna oSlomon) (10:43 LWhalen R.N.) IV FLUIDS: IV NS : initial bolus 1000 mL (1000 mL/hr), then none - for X1 (NOW) (10:12 12/11/2016 Anna Solomon) (10:18 LWmartha R.N.) Morphine IV 4 mg (HIGH ALERT MEDICATION, NOW) (10:12 12/11/2016 Anna Solomon) (10:18 LWmartha R.N.) Toradol IV 30 mg (NOW) (11:28 12/11/2016 Anna Solomon) (11:36 LWhalcomfort R.N.) ORDER SHEET NOTES: [Electronically signed by Randy Javed R.N. (16:12 12/11/2016)] [Electronically signed by Reza Greenwood Dr. (05:24 12/15/2016)] [Electronically locked/signed by Randy Javed R.N. (16:12 12/11/2016)]
--- NOTE | 2016-12-11 12:12 | ED NURSING NOTES ---
Clinical Report - Nurses [facility] [address] [place] [address] 12/11/2016 9:51 [id number] Triage time 09:54. Acuity: LEVEL 3. Chief Complaint: CHEST PAIN and DIFFICULTY BREATHING. Alert. MECHELLE COMA SCORE: Mechelle Coma Scale: 15- eyes open spontaneously (4); best verbal response- oriented x 4 (5); best motor response- obeys commands (6). --10:00 Eliane Blakely R.N. 09:53 12/11/16. BP: 136/89. HR: 77. RR: 15. O2 saturation: 96%. Temp: 98.4 F (temporal). Pain level now: 1010. --10:00 Eliane Blakely R.N. Weight: 54.4 kg stated. Height/Length: 70 inches Per Patient. BMI: 17.2. --09:58 Eliane Blakely R.N. Medications Hydrocodone-Acetaminophen Oral. --09:56 Eliane Blakely R.N. Methocarbamol Oral. --09:56 Eliane Blakely R.N. Allergies Penicillins. --09:56 Eliane Blakely R.N. History Arrived by private vehicle. Historian: patient. Accompanied by family. Primary physician ([facility]). This started last night. Describes the quality as (constant). Relates location as in the central chest area and in the back. Notes pain level as 10/10 on arrival. Provoking / relieving factors: worsened by movement, cough and deep breaths. Relieved by nothing. The patient has had difficulty breathing. No sweating episodes, nausea or vomiting. PAST MEDICAL HX: Last normal menstrual period- October 2016. SOCIAL HX: Heavy tobacco smoker- 1 pack per day. Occasional alcohol use. History of drug use: marijuana. FALL RISK ASSESSMENT: Fall risk assessment completed. No fall risk identified. FUNCTIONAL ASSESSMENT: Functional assessment: no impairments noted. LEARNING NEEDS ASSESSMENT: The learning needs assessment revealed no barriers. --10:00 Eliane Blakely R.N. PROBLEMS: Muscle Strain, Upper Extremity. Shoulder injury . Corneal Abrasion. Sprain. Headache. Migraine Headache. --09:57 Eliane Blakely R.N. ADDITIONAL SURGERIES: Knee Surgery. --09:57 Eliane Blakely R.N. Assessment GENERAL / NEURO / PSYCH: The patient is awake and alert, is oriented and cooperative and appears uncomfortable. RESPIRATORY: Respirations not labored. SKIN: Skin is warm and dry. --10:00 Eliane Blakely R.N. Interventions ID and allergy band on patient. To treatment room. --10:00 Eliane Blakely R.N. PHYSICAL ASSESSMENT 10:12/11/16. To room via wheelchair. Patient gowned. GENERAL / NEURO / PSYCH: The patient is awake and alert, is oriented and cooperative and appears uncomfortable. ( crying). RESPIRATORY: Respirations not labored. Cough. CVS: Cardiac rhythm: sinus rhythm. SKIN: Skin is warm and dry. --10: Eliane Blakely R.N. NURSING PROGRESS NOTES 10:12/11/16. investigator narcotics, pulse oximeter and NIBP monitor placed on patient. Patient gowned. Head of bed elevated. Call light placed in reach. Side rails up x 1. Bed placed in lowest position. Brakes of bed on. --10: Eliane Blakely R.N. 10:12/11/2016 Site #1 started via IV in the right antecubital space with an 20g angiocath, with aseptic technique and good blood return; one attempt. Blood drawn: rainbow set. Labeled in the presence of the patient and sent to the lab. Saline lock flushed with 10 mL saline (by Randy RUDD). --10: Eliane Blakely R.N. 10:12/11/16. EKG time: (1009). EKG was performed by a tech and shown to the ED physician. --10: Solo Champagne 10:18 12/11/2016 Morphine IVP 4 mg given over 2 minute(s) via site #1. Allergies verified, confirmed 5 rights and sedative warning given to the patient and patient's bank runner. IV patency established. IV site checked: no pain, redness, or swelling. IV flushed thoroughly pre- and post-medication administration. --10:18 Randy Javed R.N. 10:18 12/11/2016 Started bag #1 1000 mL IV Fluids IV NS (Saline); at 1000 mL/hr over 1 hour(s) via site #1 via dial-a-flow. Allergies verified and confirmed 5 rights. IV patency established. IV site checked: no pain, redness, or swelling. IV flushed thoroughly pre- and post-medication administration. --10:18 Randy Javed R.N. 10:40 12/11/2016 Duoneb (Ipratropium-Albuterol) Neb TX Nebulizer 1 unit dose given. Given by the nurse. Allergies verified and confirmed 5 rights. --10:43 Randy Javed R.N. 11:36 12/11/2016 Toradol IVP 30 mg given over 2 minute(s) via site #1. Allergies verified and confirmed 5 rights. IV patency established. IV site checked: no pain, redness, or swelling. IV flushed thoroughly pre- and post-medication administration. --11:36 Randy Javed R.N. 12:01 12/11/2016 IV Fluids IV NS Discontinued: bag #1 infused upon discharge. Total amount infused: 1000 mL. IV patency established. IV site checked: no pain, redness, or swelling. IV flushed thoroughly. --12:26 Randy Javed R.N. 11:00 12/11/16. BP: 115/78. HR: 88. RR: 18. O2 saturation: 100%. --12:27 Randy Javed R.N. DISPOSITION / DISCHARGE Departure time: 12:Dec 11 2016. Condition at departure: improved. No learning barriers present. Discharge instructions provided and reviewed with the patient. Reviewed warnings. Reviewed medication(s). Treatments reviewed. Reviewed referrals. Patient verbalized understanding. Written instructions provided in Czech. The patient was discharged home and accompanied by parent. She left the Emergency Department ambulatory and via private vehicle. Parent driving. --12:24 Randy Javed R.N. 12:24 12/11/16. BP: 104/70. HR: 88. RR: 18. O2 saturation: 97%. Temp: 98.4 F. Pain level now 09/26. --12:24 Randy Javed R.N. 12:14 12/11/2016 Site #1 removed upon discharge. Catheter intact. Pressure dressing applied. --12:24 Randy Javed R.N. Locked/Released at 12/11/2016 16:12 by Randy Javed R.N.
--- NOTE | 2016-12-11 12:12 | ED CLINICAL REPORT ---
Clinical Report - Physicians/Mid Levels [facility] [address] [place] [address] 12/11/2016 9:51 Patient: EUGENIE FARRELL Time Seen: 1009. Arrived- By private vehicle. Historian- patient. HISTORY OF PRESENT ILLNESS Chief Complaint: COUGH and SORE THROAT. This started a few days ago and is still present and worsening. It was abrupt in onset and has been constant but is not gone now. The illness is described as moderate. The patient has had a cough, difficulty breathing, a sore throat and muscle aches. She complains of moderate, sharp, pleuritic central chest pain, currently moderate, associated with shortness of breath. Additional history - No known contact with a sick individual. No recent travel. (reports no hx of dvt/pe, leg swelling, recent trauma/surgery, hemoptysis, hx of CA, hormone therapy.). Similar symptoms previously: None. Recent medical care: Not recently seen/assessed. REVIEW OF SYSTEMS All systems otherwise negative, except as recorded above. PAST HISTORY See nurses notes. Medications: Methocarbamol Oral. Hydrocodone-Acetaminophen Oral. Allergies: Penicillins. SOCIAL HISTORY Smoker- current status unknown. Occasional alcohol use. History of occasional drug use: marijuana. No recent travel. Is a local resident. FAMILY HISTORY (no family hx of early cardiac disease). ADDITIONAL NOTES The nursing notes have been reviewed. PHYSICAL EXAM Vital Signs: 12/11/2016 09:53 BP: 136/89. HR: 77. RR: 15. O2 saturation: 96%. Temp: 98.4 F. Pain level now: 10/10. Oxygen saturation normal. Appearance: Alert. No acute distress. Eyes: Pupils equal, round and reactive to light. Eyes normal inspection. ENT: Ears normal. Nose normal. Uvula midline. (mild erythema to the posterior pharynx. no massses. no exudates.). Neck: Normal inspection. Neck supple. CVS: Normal heart rate and rhythm. Heart sounds normal. Pulses normal. Respiratory: No respiratory distress. Breath sounds normal. Abdomen: Soft and nontender. No organomegaly. Skin: Skin warm and dry. Normal skin color. No rash. Normal skin turgor. Extremities: Extremities exhibit normal ROM. No lower extremity edema. Neuro: Oriented X 3. No motor deficit. No sensory deficit. LABS, X-RAYS, AND EKG EKG: No acute ischemia. Normal EKG. Normal sinus rhythm. Rate: 73. Normal P waves. Normal RHIANNON. Normal QRS complex. Normal axis. Normal ST and T waves, QT and QTc. The study has been interpreted contemporaneously. The study has been independently viewed by me. The EKG appears to be a good tracing. Chest X-ray: (PROCEDURE: XR CHEST 2 VIEW INDICATION: COUGH, RIB PAIN TECHNIQUE: PA and lateral views. COMPARISON: None. FINDINGS: Lungs are clear. Heart and mediastinum are normal. Thorax is normal. IMPRESSION: 1. Negative chest.). The X-rays were independently viewed by me and interpreted by the radiologist. The X-rays were discussed with the radiologist (via pacs). Laboratory Tests: Urine: (DONNY: 12/11/2016 11:00) ( [facility] 12/11/2016 11:12) Final results Test Result Flag Units (Reference) URINE NEGATIVE CBC w Diff: (DONNY: 12/11/2016 10:05) ( [facility] 12/11/2016 10:26) Final results Test Result Flag Units (Reference) WHITE BLOOD COUNT 9.1 K/uL (4.5-11.5) RED BLOOD COUNT 4.13 M/uL (4.00-5.20) HEMOGLOBIN 13.8 gm/dL (12.0-16.0) HEMATOCRIT 40.7 % (36.0-46.0) MEAN CELL VOLUME 99 fL (80-100) MEAN CORPUSCULAR HGB 34 pg (26-34) MEAN CORPUSCULAR HGB CONC 34 g/dL (31-37) RED CELL DISTRIBUTION WIDTH 12.6 % (11.6-14.8) PLATELET COUNT 206 K/uL (150-400) NEUTROPHIL % 47.6 L % (50-75) LYMPH % 44.7 H % (25-40) MONO % 4.5 % (3-14) EOSINOPHIL % 2.5 % (0-4) BASOPHIL % 0.7 % (0-2) CMP: (DONNY: 12/11/2016 10:05) ( [facility] 12/11/2016 10:38) Final results Test Result Flag Units (Reference) GLUCOSE 127 H mg/dL (70-110) BUN 12 mg/dL (7-18) CREATININE 0.7 mg/dL (0.6-1.3) Estimated GFR >60 mL/min Estimated GFR- >60 mL/min Note: Persistent reduction over 3 months in eGFR<60 mL/min/1.73 m2 defines CKD. Patients with eGFR values>=60 mL/min/1.73 m2 may also have CKD if evidence ofpersistent proteinuria. Additional information may be foundat www.kidney.org. SODIUM 140 mmol/L (136-145) POTASSIUM 4.2 mmol/L (3.5-5.1) CHLORIDE 104 mmol/L (98-107) CARBON DIOXIDE 27 mmol/L (21-32) CALCIUM 8.8 mg/dL (8.5-10.1) TOTAL PROTEIN 7.2 g/dL (6.4-8.2) ALBUMIN 3.7 g/dL (3.3-5.0) BILIRUBIN, TOTAL 0.8 mg/dL (0.0-1.0) ALKALINE PHOSPHATASE 105 U/L (46-116) AST (SGOT) 17 U/L (15-37) ALT (SGPT) 25 U/L (12-78) LIPASE 127 U/L (73-393) Culture, Strep Screen: (DONNY: 12/11/2016 10:10) ( [facility] 12/13/2016 12:14) Final results Test Result Flag Units (Reference) RAPID STREP SCREEN - THROAT DATE: 12/11/16 NEGATIVE SCREEN: RAPID STREP SCREEN NEGATIVE; CONFIRMATION TO FOLLOW . DATE: 12/13/16 NO BETA STREP ISOLATED: NO BETA STREP ISOLATED . PROGRESS AND PROCEDURES Course of Care: the patient is a pleasant 31-year-old female presenting for evaluation of what appears to be pleuritic chest pain and symptoms of upper respiratory tract infection. Patient is also having chest pain and shortness of breath. Patient is currently PE RC negative. Do not feel further workup/evaluation for pulmonary embolism is Warranted. Patient also with a low risk on well's criteria. We'll evaluate for any acute electrolyte abnormalities with or metabolic disturbances from the patient'sillness as well as evaluation of chest x-ray and EKG for any conduction abnormalities. EKG without any acute findings. Has been reviewed for pericarditis. No signs of pericarditis on my evaluation. Patient is also noted to have no tachycardia. Symptoms are also not positional. The patient's workup was noted for the findings above. No acute abnormalities noted requiring further treatment here in the emergency department or admission to the hospital. Rapid strep is noted to be negative. Her etiology favored. Patient with notedsignificant improvement withinterventions provided here in the emergency department. Patient does not have any wheezing on examination however did reports significant improvement after breathing treatment was provided. Because of the patient's symptomatic improvement with breathing treatment, do not feel symptoms at this time are due to any more sinister etiologies. I discussion with the patient in regards to her workup here in the emergency department according diagnosis, home care, follow-up, and return precautions. All questions have been answered. The patient expressed understanding of these instructions and was agreeable to them. Do not feel chest pain is cardiac in nature. Feel the patient's discomfort is pleuritic. Disposition: Discharged. Condition: good. CLINICAL IMPRESSION Chest wall pain .12 lead EKG performed. (acute bilateral lower). Acute bronchitis. Acute bronchospasm Essential hypertension. INSTRUCTIONS Warnings: SEDATIVE MEDICATION: You were given sedative medication during your visit. Do not drive or operate dangerous machinery. CONTROLLED SUBSTANCE WARNINGS. GENERAL WARNINGS: Return or contact your physician immediately if your condition worsens or changes unexpectedly, if not improving as expected, or if other problems arise. Specifically return if pain, vomiting, bleeding, breathing difficulty or fever. Your Current Medications: CONTINUE TAKING THE FOLLOWING MEDICATIONS: Hydrocodone-Acetaminophen Oral. Methocarbamol Oral. Prescription Medications: Zithromax Z-Valentino: Take according to package instructions. No refills. Substitution is permissible. Percocet 5 mg/325 mg: take 1-2 tablets orally every 6 hours as needed for pain. Dispense twelve (12). No refill. Substitution is permissible. Follow-up: Return to the emergency department as needed. Follow up with your doctor in three days. Reason for referral: recheck today's concerns. Summary of care provided to patient via paper. Screening today revealed the patient's blood pressure to be in the hypertensive range. The patient should follow up with a primary care provider for blood pressure management. Understanding of the discharge instructions verbalized by patient. Follow-up with: [facility], , , [address], , [place], [id number] Follow up. Reason for referral: contact for follow up if you do not have a PCP. Summary of care provided to patient via paper. (Electronically signed by Reza Greenwood Dr. 12/15/2016 5:24)
--- NOTE | 2016-12-15 05:24 | ED DISCHARGE INSTRUCTIONS ---
Patient: EUGENIE FARRELL General Instructions [facility] VisitID: [id number] [address] [place] [address] 31y, F Registration Date/Time: 12/11/2016 Chest wall pain .12 lead EKG performed. (acute bilateral lower). Acute bronchitis. Acute bronchospasm Essential hypertension. INSTRUCTIONS Warnings: SEDATIVE MEDICATION: You were given sedative medication during your visit. Do not drive or operate dangerous machinery. CONTROLLED SUBSTANCE WARNINGS. GENERAL WARNINGS: Return or contact your physician immediately if your condition worsens or changes unexpectedly, if not improving as expected, or if other problems arise. Specifically return if pain, vomiting, bleeding, breathing difficulty or fever. Your Current Medications: CONTINUE TAKING THE FOLLOWING MEDICATIONS: Hydrocodone-Acetaminophen Oral. Methocarbamol Oral. Prescription Medications: Zithromax Z-Valentino: Take according to package instructions. No refills. Substitution is permissible. Percocet 5 mg/325 mg: take 1-2 tablets orally every 6 hours as needed for pain. Dispense twelve (12). No refill. Substitution is permissible. Follow-up: Return to the emergency department as needed. Follow up with your doctor in three days. Reason for referral: recheck today's concerns. Summary of care provided to patient via paper. Screening today revealed the patient's blood pressure to be in the hypertensive range. The patient should follow up with a primary care provider for blood pressure management. Understanding of the discharge instructions verbalized by patient. Follow-up with: [facility], , , [address], [place], [id number] Follow up. Reason for referral: contact for follow up if you do not have a PCP. Summary of care provided to patient via paper. ADDITIONAL INFORMATION Bronchitis (Adult: Abx Tx) BRONCHITIS is an infection of the air passages (bronchial tubes). It often occurs during the common cold. Symptoms include cough with mucus (phlegm) and low-grade fever. Bronchitis usually lasts 7-14 days. Mild cases can be treated with simple home remedies. More severe infection is treated with an antibiotic. Home Care: If symptoms are severe, rest at home for the first 2-3 days. When you resume activity, don't let yourself get too tired. Do not smoke. Avoid being exposed to the smoke of others. You may use acetaminophen (Tylenol) or ibuprofen (Motrin, Advil) to control fever or pain, unless another medicine was prescribed for this. [NOTE: If you have chronic liver or kidney disease or ever had a stomach ulcer or GI bleeding, talk with your doctor before using these medicines.] Your appetite may be poor, so a light diet is fine. Avoid dehydration by drinking 6-8 glasses of fluids per day (water, soft, drinks, juices, tea, soup, etc.). Extra fluids will help loosen secretions in the lungs. Mebi-ecr-oafeqjk cough medicines that containdextromethorphan(such as Robitussin DM) and decongestants (Actifed or Sudafed) may help relieve cough and congestion. [NOTE: Do not use decongestants if you have high blood pressure.] Finish all antibiotic medicine, even if you are feeling better after only a few days. Follow Up with your doctor or as directed if you dont start to feel better after three days. [NOTE: If you are age 65 or older, or if you have chronic asthma or COPD, we recommend a PNEUMOCOCCAL VACCINATION every five years and a yearly INFLUENZAVACCINATION (FLU-SHOT) every . Ask your doctor about this. If you had an X-ray, a radiologist will review it. You will be notified of any new findings that may affect your care.] Get Prompt Medical Attention if any of the following occur: Fever over 100.4F (38.0C) for more than three days Trouble breathing, wheezing or pain with breathing Coughing up blood or increased amounts of colored sputum Weakness, drowsiness, headache, facial pain, ear pain or a stiff neck Bronchospasm (Adult) Bronchospasm occurs when the airways (bronchial tubes) go into spasm and contract. This makes it hard to breathe and causes wheezing (a high-pitched whistling sound). Bronchospasm can also cause frequent coughing without the wheezing sound. Bronchospasm is due to irritation, inflammation or allergic reaction of the airways. People with asthma get bronchospasm. However, not everyone with bronchospasm has asthma. Being exposed to harmful fumes, a recent case of bronchitis, or a flare-up of chronic emphysema (COPD) may cause the airways to spasm. An episode of bronchospasm may last 7-14 days. Medicine may be prescribed to relax the airways and prevent wheezing. Antibiotics will be prescribed only if your doctor thinks there is a bacterial infection. Antibiotics do not help a viral infection. Home Care: Drink lots of water or other fluids (at least 10 glasses a day) during an attack. This will loosen lung secretions and make it easier to breathe. If you have heart or kidney disease, check with your doctor before you drink extra amounts of fluids. Take prescribed medicine exactly at the times advised. If you have a hand-held inhaler or aerosol breathing medicine, do not use it more than once every four hours, unless told to do so. If prescribed an antibiotic or prednisone, take all of the medicine even if you are feeling better after a few days. Do not smoke. Avoid being exposed to the smoke of others. If you were given an inhaler, use it exactly as directed. If you need to use it more often than prescribed, your condition may be getting worse. Contact your doctor or this facility. Follow Up With Your Doctor, Or As Directed. [ NOTE: If you are age 65 or older, or if you have chronic asthma or COPD, we recommend a PNEUMOCOCCAL VACCINATION every five years and a yearly INFLUENZA VACCINATION (FLU-SHOT) every . Ask your doctor about this.] Get Prompt Medical Attention If Any Of The Following Occur: Increased wheezing or shortness of breath Need to use your inhalers more often than usual without relief Fever of 100.4F (38C) or higher, or as directed by your healthcare provider Coughing up lots of dark-colored or bloody sputum (mucus) Chest pain with each breath You do not start to improve within 24 hours High Blood Pressure -- To Be Confirmed [No Tx] Your blood pressure was higher today than normal. Sometimes anxiety or pain can cause a temporary rise in blood pressure that later returns to normal. If your blood pressure is high on one measurement, this does not mean that you have hypertension (a chronic illness). However, you must have your blood pressure measured again within the next few days to find out if its still high. A normal blood pressure is 120/80 or less. The first (top) number is the "systolic" pressure. The second (bottom) number is the "diastolic" pressure. Hypertension exists when either the top number is 140 or higher, OR the bottom number is 90 or higher on repeated measurements. Blood pressure in the range of 120-140 (systolic) or 80-89 (diastolic) is considered "pre-hypertension". This means your are at risk for getting hypertension. You should have regular blood pressure checks to be sure your blood pressure is not rising. Home Care: Measure your blood pressure on 3 different days and write down the results. This can be done at your doctor's office or this facility. Some pharmacies and grocery stores offer automated blood pressure machines for your use. Follow Up: If your blood pressure is "high" (over 120/80) on 2 out of 3 days, you will need to follow up with your doctor for further evaluation and treatment. DO NOT PUT THIS OFF! Untreated high blood pressure increases the risk for heart attack, also known as acute myocardial infarction, or AMI, and stroke. It is a treatable condition. Get Prompt Medical Attention if any of the following occur: Chest pain or shortness of breath Severe headache Throbbing or rushing sound in the ears Nosebleed Sudden severe abdominal pain Extreme drowsiness, confusion or fainting Dizziness or vertigo (dizziness with spinning sensation) Weakness of an arm or leg or one side of the face Difficulty with speech or vision Chest Strain A strain of the chest is due to stretching and tearing of the muscle fibers between the ribs. This may occur as a result of severe coughing, strenuous lifting or twisting injuries of the upper back. This usually causes increased pain with movement or deep breathing. This may take a few days to a few weeks to heal. Home Care: Rest. Avoid heavy lifting or strenuous exertion. Avoid any activity that causes pain. If you have a severe cough, use a cough syrup such as Robitussin DM (containing dextromethorphan) unless another cough medicine was prescribed. You may use acetaminophen (Tylenol) or ibuprofen (Motrin, Advil) to control pain, unless another medicine was prescribed. [ NOTE: If you have chronic liver or kidney disease or ever had a stomach ulcer or GI bleeding, talk with your doctor before using these medicines.] Follow Up with your doctor as directed. Get Prompt Medical Attention if any of the following occur: A change in the type of pain: if it feels different, becomes more severe, lasts longer, or begins to spread into your shoulder, arm, neck, jaw or back Shortness of breath or increased pain with breathing Cough with dark colored sputum (phlegm) or blood Weakness, dizziness, or fainting Fever of 100.4F (38C) or higher, or as directed by your healthcare provider Azithromycin Oral tablet What is this medicine? AZITHROMYCIN (az gulshan ramirez) is a macrolide antibiotic. It is used to treat or prevent certain kinds of bacterial infections. It will not work for colds, flu, or other viral infections. How should I use this medicine? Take this medicine by mouth with a full glass of water. Follow the directions on the prescription label. The tablets can be taken with food or on an empty stomach. If the medicine upsets your stomach, take it with food. Take your medicine at regular intervals. Do not take your medicine more often than directed. Take all of your medicine as directed even if you think your are better. Do not skip doses or stop your medicine early. Talk to your mfg assoc regarding the use of this medicine in children. Special care may be needed. What side effects may I notice from receiving this medicine? Side effects that you should report to your doctor or health acute care certified nursing assistant as soon as possible: allergic reactions like skin rash, itching or hives, swelling of the face, lips, or tongue confusion, nightmares or hallucinations dark urine difficulty breathing hearing loss irregular heartbeat or chest pain pain or difficulty passing urine redness, blistering, peeling or loosening of the skin, including inside the mouth white patches or sores in the mouth yellowing of the eyes or skin Side effects that usually do not require medical attention (report to your doctor or health acute care certified nursing assistant if they continue or are bothersome): diarrhea dizziness, drowsiness headache stomach upset or vomiting tooth discoloration vaginal irritation What may interact with this medicine? Do not take this medicine with any of the following medications: lincomycin This medicine may also interact with the following medications: amiodarone antacids cyclosporine digoxin magnesium nelfinavir phenytoin warfarin What if I miss a dose? If you miss a dose, take it as soon as you can. If it is almost time for your next dose, take only that dose. Do not take double or extra doses. Where should I keep my medicine? Keep out of the reach of children. Store at room temperature between 15 and 30 degrees C (59 and 86 degrees F). Throw away any unused medicine after the expiration date. What should I tell my health care provider before I take this medicine? They need to know if you have any of these conditions: kidney disease liver disease irregular heartbeat or heart disease an unusual or allergic reaction to azithromycin, erythromycin, other macrolide antibiotics, foods, dyes, or preservatives or trying to get breast-feeding What should I watch for while using this medicine? Tell your doctor or health acute care certified nursing assistant if your symptoms do not improve. Do not treat diarrhea with over the counter products. Contact your doctor if you have diarrhea that lasts more than 2 days or if it is severe and watery. This medicine can make you more sensitive to the sun. Keep out of the sun. If you cannot avoid being in the sun, wear protective clothing and use sunscreen. Do not use sun lamps or tanning beds/booths. Oxycodone Hydrochloride, Acetaminophen Oral tablet What is this medicine? ACETAMINOPHEN; OXYCODONE (a set a SHARMAINE herb fen; ox i KOE done) is a pain reliever. It is used to treat mild to moderate pain. How should I use this medicine? Take this medicine by mouth with a full glass of water. Follow the directions on the prescription label. Take your medicine at regular intervals. Do not take your medicine more often than directed. Talk to your mfg assoc regarding the use of this medicine in children. Special care may be needed. Patients over 65 years old may have a stronger reaction and need a smaller dose. What side effects may I notice from receiving this medicine? Side effects that you should report to your doctor or health acute care certified nursing assistant as soon as possible: allergic reactions like skin rash, itching or hives, swelling of the face, lips, or tongue breathing difficulties, wheezing confusion light headedness or fainting spells severe stomach pain yellowing of the skin or the whites of the eyes Side effects that usually do not require medical attention (report to your doctor or health acute care certified nursing assistant if they continue or are bothersome): dizziness drowsiness nausea vomiting What may interact with this medicine? alcohol antihistamines barbiturates like amobarbital, butalbital, butabarbital, methohexital, pentobarbital, phenobarbital, thiopental, and secobarbital benztropine drugs for bladder problems like solifenacin, trospium, oxybutynin, tolterodine, hyoscyamine, and methscopolamine drugs for breathing problems like ipratropium and tiotropium drugs for certain stomach or intestine problems like propantheline, homatropine methylbromide, glycopyrrolate, atropine, belladonna, and dicyclomine general anesthetics like etomidate, ketamine, nitrous oxide, propofol, desflurane, enflurane, halothane, isoflurane, and sevoflurane medicines for depression, anxiety, or psychotic disturbances medicines for sleep muscle relaxants naltrexone narcotic medicines (opiates) for pain phenothiazines like perphenazine, thioridazine, chlorpromazine, mesoridazine, fluphenazine, prochlorperazine, promazine, and trifluoperazine scopolamine tramadol trihexyphenidyl What if I miss a dose? If you miss a dose, take it as soon as you can. If it is almost time for your next dose, take only that dose. Do not take double or extra doses. Where should I keep my medicine? Keep out of the reach of children. This medicine can be abused. Keep your medicine in a safe place to protect it from theft. Do not share this medicine with anyone. Selling or giving away this medicine is dangerous and against the law. Store at room temperature between 20 and 25 degrees C (68 and 77 degrees F). Keep container tightly closed. Protect from light. This medicine may cause accidental overdose and if it is taken by other adults, children, or pets. Flush any unused medicine down the toilet to reduce the chance of harm. Do not use the medicine after the expiration date. What should I tell my health care provider before I take this medicine? They need to know if you have any of these conditions: brain tumor Crohn's disease, inflammatory bowel disease, or ulcerative colitis drink more than 3 alcohol containing drinks per day drug abuse or addiction head injury heart or circulation problems kidney disease or problems going to the bathroom liver disease lung disease, asthma, or breathing problems an unusual or allergic reaction to acetaminophen, oxycodone, other opioid analgesics, other medicines, foods, dyes, or preservatives or trying to get breast-feeding What should I watch for while using this medicine? Tell your doctor or health acute care certified nursing assistant if your pain does not go away, if it gets worse, or if you have new or a different type of pain. You may develop tolerance to the medicine. Tolerance means that you will need a higher dose of the medication for pain relief. Tolerance is normal and is expected if you take this medicine for a long time. Do not suddenly stop taking your medicine because you may develop a severe reaction. Your body becomes used to the medicine. This does NOT mean you are addicted. Addiction is a behavior related to getting and using a drug for a non-medical reason. If you have pain, you have a medical reason to take pain medicine. Your doctor will tell you how much medicine to take. If your doctor wants you to stop the medicine, the dose will be slowly lowered over time to avoid any side effects. You may get drowsy or dizzy. Do not drive, use machinery, or do anything that needs mental alertness until you know how this medicine affects you. Do not stand or sit up quickly, especially if you are an older patient. This reduces the risk of dizzy or fainting spells. Alcohol may interfere with the effect of this medicine. Avoid alcoholic drinks. There are different types of narcotic medicines (opiates) for pain. If you take more than one type at the same time, you may have more side effects. Give your health care provider a list of all medicines you use. Your doctor will tell you how much medicine to take. Do not take more medicine than directed. Call emergency for help if you have problems breathing. The medicine will cause constipation. Try to have a bowel movement at least every 2 to 3 days. If you do not have a bowel movement for 3 days, call your doctor or health acute care certified nursing assistant. Do not take Tylenol (acetaminophen) or medicines that have acetaminophen with this medicine. Too much acetaminophen can be very dangerous. Many nonprescription medicines contain acetaminophen. Always read the labels carefully to avoid taking more acetaminophen. You have been given the following additional information: Bronchitis, Antiobiotic Treatment (Adult) Bronchospasm (Adult) Hypertension, To Be Confirmed Chest Wall Strain Azithromycin Oral tablet Oxycodone Hydrochloride, Acetaminophen Oral tablet (Electronically signed by Reza Greenwood Dr. 12/15/2016 5:24)
--- NOTE | 2016-12-15 05:24 | ED MED RECONCILIATION SUMMARY ---
Patient: EUGEINE FARRELL Medication Reconciliation Report [facility] VisitID: [id number] [address] [place] [address] 31y, F Registration Date/Time: 12/11/2016 Weight: 54.4 kg Height/Length: 70 in. BMI: 17.2 ALLERGIES: Penicillins The patient's Home Medications are listed below: CONTINUE TAKING THE FOLLOWING MEDICATIONS: Hydrocodone-Acetaminophen Oral Methocarbamol Oral The source(s) of the original Home Medication information: Not obtained. The following Medications were given to the patient in the Emergency Department: Morphine [IVP] IVP 4 mg, administered: 12/11/2016 10:18:00 AM IV NS IV Fluids bolus 0, then 1000 mL/hr, administered: 12/11/2016 10:18:00 AM Duoneb [Neb Tx] Neb TX 1 unit dose, administered: 12/11/2016 10:40:00 AM Toradol [IVP] IVP 30 mg, administered: 12/11/2016 11:36:00 AM The following Medications were prescribed to the patient: Zithromax Z-Valentino: Take according to package instructions. No refills. Substitution is permissible. -- Reza Greenwood Dr. Percocet 5 mg/325 mg: take 1-2 tablets orally every 6 hours as needed for pain. Dispense twelve (12). No refill. Substitution is permissible. -- Reza Greenwood Dr.
--- NOTE | 2016-12-15 05:24 | ED MED RECONCILIATION SUMMARY ---
Patient: EUGENIE FARRELL Medication Reconciliation Report [facility] VisitID: [id number] [address] [place] [address] 31y, F Registration Date/Time: 12/11/2016 Weight: 54.4 kg Height/Length: 70 in. BMI: 17.2 ALLERGIES: Penicillins The patient's Home Medications are listed below: CONTINUE TAKING THE FOLLOWING MEDICATIONS: Hydrocodone-Acetaminophen Oral Methocarbamol Oral The source(s) of the original Home Medication information: Not obtained. The following Medications were given to the patient in the Emergency Department: Morphine [IVP] IVP 4 mg, administered: 12/11/2016 10:18:00 AM IV NS IV Fluids bolus 0, then 1000 mL/hr, administered: 12/11/2016 10:18:00 AM Duoneb [Neb Tx] Neb TX 1 unit dose, administered: 12/11/2016 10:40:00 AM Toradol [IVP] IVP 30 mg, administered: 12/11/2016 11:36:00 AM The following Medications were prescribed to the patient: Zithromax Z-Valentino: Take according to package instructions. No refills. Substitution is permissible. -- Reza Greenwood Dr. Percocet 5 mg/325 mg: take 1-2 tablets orally every 6 hours as needed for pain. Dispense twelve (12). No refill. Substitution is permissible. -- Reza Greenwood Dr.
--- NOTE | 2016-12-15 05:24 | ED MAR SUMMARY ---
..... Medication Administration Record [facility] [address] [place] [address] Patient: EUGENIE FARRELL Visit ID: [id number] 31y, F Weight: 54.4 kg Height/Length: 70 in BMI: 17.2 ALLERGIES: Penicillins Start 10:18 12/11/2016 Randy Javed R.N., Stop 12:01 12/11/2016 Randy Javed R.N. Medication Administered: IV NS (SALINE), Dose: IV Fluids over 1 hour(s), Rate: 1000 mL/hr, Dispensed: 1000 mL bag, Site: #1 right AC. Medication Ordered: IV NS : initial bolus 1000 mL (1000 mL/hr), then none - for X1 (NOW). Given 10:18 12/11/2016 Randy Javed R.N. Medication Administered: MORPHINE [IVP], Dose: 4 mg IVP over 2 minute(s), Site: #1 right AC. Medication Ordered: Morphine IV 4 mg (HIGH ALERT MEDICATION, NOW). Given 10:40 12/11/2016 Randy Javed R.N. Medication Administered: DUONEB [NEB TX] (IPRATROPIUM-ALBUTEROL), Dose: 1 unit dose Nebulizer Neb TX. Medication Ordered: DuoNeb Neb Tx 1 unit dose (back log for 10:40am). Given 11:36 12/11/2016 Randy Javed R.N. Medication Administered: TORADOL [IVP], Dose: 30 mg IVP over 2 minute(s), Site: #1 right AC. Medication Ordered: Toradol IV 30 mg (NOW).
--- NOTE | 2016-12-15 05:24 | ED MAR SUMMARY ---
..... Medication Administration Record [facility] [address] [place] [address] Patient: EUGENIE FARRELL Visit ID: [id number] 31y, F Weight: 54.4 kg Height/Length: 70 in BMI: 17.2 ALLERGIES: Penicillins Start 10:18 12/11/2016 Randy Javed R.N., Stop 12:01 12/11/2016 Randy Javed R.N. Medication Administered: IV NS (SALINE), Dose: IV Fluids over 1 hour(s), Rate: 1000 mL/hr, Dispensed: 1000 mL bag, Site: #1 right AC. Medication Ordered: IV NS : initial bolus 1000 mL (1000 mL/hr), then none - for X1 (NOW). Given 10:18 12/11/2016 Randy Javed R.N. Medication Administered: MORPHINE [IVP], Dose: 4 mg IVP over 2 minute(s), Site: #1 right AC. Medication Ordered: Morphine IV 4 mg (HIGH ALERT MEDICATION, NOW). Given 10:40 12/11/2016 Randy Javed R.N. Medication Administered: DUONEB [NEB TX] (IPRATROPIUM-ALBUTEROL), Dose: 1 unit dose Nebulizer Neb TX. Medication Ordered: DuoNeb Neb Tx 1 unit dose (back log for 10:40am). Given 11:36 12/11/2016 Randy Javed R.N. Medication Administered: TORADOL [IVP], Dose: 30 mg IVP over 2 minute(s), Site: #1 right AC. Medication Ordered: Toradol IV 30 mg (NOW).
== END 2016-12-11 12:15 | disposition home or self-care (01) ==
LOC: ED SRH 09:50
DX: R07.89 Other chest pain (principal); J20.9 Acute bronchitis, unspecified; I10 Essential (primary) hypertension; F17.210 Nicotine dependence, cigarettes, uncomplicated; Z88.0 Allergy status to penicillin
CPT/HCPCS: 90100; 90154; 90159; 92235; 93070; 95059